=== PATIENT | female | born 1970 | race Two or more races ===

== ENCOUNTER → 2016-11-22 | Outpatient (CLI) | payer SELFPAY ==
[~2016-11-22] MED LIST: AMLO5TAB4 PO; BLOOD PRESSURE MED PO; FUROSEMIDE 20 MG/2 ML ONE; LEVO500T33 PO
== END | disposition home or self-care (01) ==
LOC: PETCFH 10:22
PROVIDERS: ATTEND Urology
DX: N28.9 Disorder of kidney and ureter, unspecified (principal)
CPT/HCPCS: 78708; A9562; J1940

== ENCOUNTER → 2017-01-08 | Outpatient (CLI) | payer OTHER ==
[~2017-01-08] MED LIST changes: -FUROSEMIDE 20 MG/2 ML ONE
== END | disposition home or self-care (01) ==
LOC: STAR 09:25
PROVIDERS: ATTEND Urology
DX: Z01.818 Encounter for other preprocedural examination (principal); Q62.11 Congenital occlusion of ureteropelvic junction; N20.0 Calculus of kidney
CPT/HCPCS: 81001; 87086

== ENCOUNTER 2017-01-12 15:59 | Emergency (ER) | payer SELFPAY ==
[~2017-01-12] VITALS: Ht 152.4 cm; Wt 86.0 kg
[~2017-01-12 15:59] MED LIST changes: -ACETAMINOPHEN 325 MG TABLET PO PRN; -FENTANYL PF 100 MCG/2ML IV PRN; -FENTANYL PF 250 MCG/5ML ONE; -HYDROmorphone 1 MG/ML, 1ML IV PRN; -LACTATED RINGERS 1,000 ML IV SCH; -MEPERIDINE/PF 25MG/0.5ML IVPush PRN; -METOCLOPRAMIDE 5 MG/ML, 2ML IV PRN; -MIDAZOLAM 1 MG/ML, 2ML IV PRN; -ONDANSETRON 2MG/ML, 2ML IVPush PRN; -OXYcodone 5 MG/5 ML ORAL.SOL UDC PO PRN; -PROMETHAZINE 25 MG/ML, 1ML IV PRN
[2017-01-12] MEDS ORDERED: LABETALOL 5MG/ML, 20ML ONE (16:23)
[2017-01-12] MEDS ORDERED: SODIUM CHLORIDE FLUSH 10ML SYR IVF ONE (16:30)
[2017-01-12] MEDS ORDERED: LABETALOL 5MG/ML, 20ML IVPush ONE (16:30)
[2017-01-12 16:37] LABS: BLOOD UREA NITROGEN 14 mg/dL (7-18)
[2017-01-12 17:54] VITALS: BP 154/83
== END 2017-01-12 18:13 | disposition home or self-care (01) ==
LOC: ED 17:30
DX: I10 Essential (primary) hypertension (principal); Z98.890 Other specified postprocedural states
CPT/HCPCS: 36415; 71010; 80048; 82040; 84484; 85025; 93005; 96374

== ENCOUNTER → 2017-01-12 | Outpatient (CLI) | payer OTHER ==
[2017-01-08 10:12] VITALS: BP 201/101
[~2017-01-12] VITALS: Ht 152.4 cm; Wt 86.0 kg
[~2017-01-12] MED LIST changes: +ACETAMINOPHEN 325 MG TABLET PO PRN; +FENTANYL PF 100 MCG/2ML IV PRN; +FENTANYL PF 250 MCG/5ML ONE; +HYDROmorphone 1 MG/ML, 1ML IV PRN; +LACTATED RINGERS 1,000 ML IV SCH; +MEPERIDINE/PF 25MG/0.5ML IVPush PRN; +METOCLOPRAMIDE 5 MG/ML, 2ML IV PRN; +MIDAZOLAM 1 MG/ML, 2ML IV PRN; +ONDANSETRON 2MG/ML, 2ML IVPush PRN; +OXYcodone 5 MG/5 ML ORAL.SOL UDC PO PRN; +PROMETHAZINE 25 MG/ML, 1ML IV PRN
[2017-01-12 13:45] LABS: HCG UR OBC PASS
== END | disposition home or self-care (01) ==
LOC: SDC 12:00 → OUT 12:23 → EDSTATUS 14:30
PROVIDERS: ATTEND Urology
DX: Z01.818 Encounter for other preprocedural examination (principal); Q62.11 Congenital occlusion of ureteropelvic junction; N20.0 Calculus of kidney
CPT/HCPCS: 81025; J7120; J3010